=== PATIENT | female | born 1985 | race African-American/Black ===

== ENCOUNTER 2020-11-15 13:25 | Emergency (ER) | payer SELFPAY ==
[~2020-11-15] VITALS: Ht 165.1 cm; Wt 140.0 kg
[2020-11-15] MEDS ORDERED: normal saline 1000ML IV soln IV ONE (13:55)
[2020-11-15] MEDS ORDERED: diphenhydrAMINE 50 mg/ml inj IV ONE ×2 (13:55→15:10)
[2020-11-15] MEDS ORDERED: HYDROmorphone 1 mg/ml syringe IV ONE ×5 (13:55→16:15)
[2020-11-15] MEDS ORDERED: ondansetron/PF 4mg/2ml inj IV ONE (13:55)
[2020-11-15 14:07] LABS: BASOPHILS % (AUTO) 1.3 % (0-1); EOSINOPHILS # (AUTO) 0.1 X10'3 (0-0.9); EOSINOPHILS % (AUTO) 2.1 % (0-6); HEMATOCRIT 33.5 % (35.0-45.0); HEMOGLOBIN 10.4 g/dl (12.0-16.0); LYMPHOCYTES # (AUTO) 1.3 X10'3 (1.1-4.8); LYMPHOCYTES % (AUTO) 35.3 % (21-51); MEAN CORPUSCULAR HEMOGLOBIN 21.2 PG (27.0-31.0); MEAN CORPUSCULAR HGB CONC 31.1 g/dL (33.0-36.5); MEAN CORPUSCULAR VOLUME 68.3 FL (78-98); MEAN PLATELET VOLUME 8.4 FL (7.4-10.4); MONOCYTES # (AUTO) 0.2 X10'3 (0-0.9); MONOCYTES % (AUTO) 5.8 % (2-12); NEUTROPHILS # (AUTO) 2.1 X10'3 (1.8-7.7); NEUTROPHILS % (AUTO) 55.5 % (42-75); PLATELET COUNT 420 X10'3 (140-440); RED BLOOD COUNT 4.91 X10'6 (4.20-5.60); WHITE BLOOD COUNT 3.8 X10'3 (4.5-11.0)
[2020-11-15 14:22] LABS: ALANINE AMINOTRANSFERASE 18 U/L (12-78); ALBUMIN 3.6 G/DL (3.4-5.0); ALBUMIN/GLOBULIN RATIO 0.9 (1.1-1.5); ALKALINE PHOSPHATASE 52 IU/L (46-116); ANION GAP 9 (8-16); ASPARTATE AMINO TRANSFERASE 12 U/L (10-37); BILIRUBIN,TOTAL 0.3 MG/DL (0.1-1.0); BLOOD UREA NITROGEN 6 MG/DL (7-18); BUN/CREATININE RATIO 10.3 (6.6-38.0); CALCIUM 8.8 MG/DL (8.5-10.1); CHLORIDE 106 MMOL/L (99-107); CREATININE 0.58 MG/DL (0.40-0.90); GLUCOSE 86 MG/DL (70-104); POTASSIUM 3.9 MMOL/L (3.5-5.1); SODIUM 142 MMOL/L (135-145); TOTAL CARBON DIOXIDE 27.3 MMOL/L (24-32); TOTAL PROTEIN 7.6 G/DL (6.4-8.2); eGFR > 90 ML/MIN
--- NOTE | 2020-11-15 14:25 | NUR ---
Per pt, her usual txmt for sickle cell crisis is 50 mg Benadryl, 4 mg Zofran and 2 mg IV Dilaudid. PA notified, verbal order for another dose of Dilaudid given. Pt on cont SpO2 monitor, SpO2 100%, wide awake after first dose of medicine.
[2020-11-15 14:31] LABS: ANISOCYTOSIS 3+; MICROCYTOSIS 2+; PLATELET ESTIMATE NORMAL
[2020-11-15 14:32] LABS: SCHISTOCYTES 1+; TARGET CELLS FEW
[2020-11-15 15:01] LABS: ELLIPTOCYTES FEW
[2020-11-15] MEDS ORDERED: apixaban 5mg tablet PO ONE (15:35)
[2020-11-15] MEDS ORDERED: oxyCODONE/APAP 10/325mg tablet PO ONE (16:15)
[2020-11-15] MEDS ORDERED: APIX5TAB3 PO ×2 (16:17)
[2020-11-15] MEDS ORDERED: OXYC-150 PO (16:17)
[2020-11-15 16:52] VITALS: BP 124/88
== END 2020-11-15 16:59 | disposition home or self-care (01) ==
LOC: ER 13:26
DX: I82.432 Acute embolism and thrombosis of left popliteal vein (principal); D57.00 Hb-SS disease with crisis, unspecified; M79.604 Pain in right leg; I10 Essential (primary) hypertension; Z90.89 Acquired absence of other organs; Z90.49 Acquired absence of other specified parts of digestive tract; Z98.890 Other specified postprocedural states; Z79.899 Other long term (current) drug therapy
CPT/HCPCS: 36415; 71045; 80053; 85008; 85025; 85610; 86885; 86900; 86901; 93005; 93970; 96361; 96374; 96375; 96376; 99285; J1170; J1200; J2405; J7030

== ENCOUNTER 2020-11-17 12:03 | Emergency (ER) | payer OTHER ==
[~2020-11-17] VITALS: Ht 165.1 cm; Wt 153.6 kg
[~2020-11-17 12:03] MED LIST: APIX5TAB3 PO; OXYC-150 PO
[2020-11-17 13:37] VITALS: BP 135/80
== END 2020-11-17 14:27 | disposition left against medical advice (07) ==
LOC: ER 12:04
DX: I82.432 Acute embolism and thrombosis of left popliteal vein (principal); I10 Essential (primary) hypertension; Z90.89 Acquired absence of other organs; Z90.49 Acquired absence of other specified parts of digestive tract; Z98.890 Other specified postprocedural states; Z79.899 Other long term (current) drug therapy
CPT/HCPCS: 99281